=== PATIENT | male | born 1990 | race Caucasian/White ===

== ENCOUNTER 2021-11-19 06:37 | Day surgery (SDC) | payer OTHER, SELFPAY ==
[2021-11-19] VITALS (11 sets, daily range): BP systolic 115–135; BP diastolic 76–86; PULSE 65–84; RESP 12–16; TEMP 36.7–37.2; O2SAT 97–99; BMI 37.5
--- NOTE | 2021-11-19 06:57 | CRLHL7_ITS ---
For Patients: As a result of the Cures Act, medical imaging exams and procedure reports are released immediately into your electronic medical record. You may view this report before your referring provider. If you have questions, please contact your health care provider. Indication: foreign body removal Technique: Three fluoroscopic images of the thenar aspect of the right hand submitted. Fluoroscopic time 13.0 seconds. IMPRESSION: Fluoroscopic guidance for foreign body removal. Dictated by Fabrizio Molina MD @ 11/19/2021 8:51:42 AM (Electronically Signed)
[2021-11-19] MEDS: BUPIVACAINE 0.5% 30 ML 6 ML INJECTION (07:32)
[2021-11-19] MEDS: lidocaine HCL 2 % MULTIDOSE 20 ML VIAL 6 ML INJECTION (07:32)
--- NOTE | 2021-11-19 08:06 | PM.ORPRC ---
Procedure Note Date of procedure: 11/19/21 Procedure: SURGEON: Seferino Conley MD CALENDER MACHINE OPERATOR: Yenny Luis PA-C. PREOPERATIVE DIAGNOSIS: Right hand retained foreign body POSTOPERATIVE DIAGNOSIS: Right hand retained foreign body NAME OF OPERATION: Right hand foreign body removal, deep ANESTHESIA: Local ESTIMATED BLOOD LOSS: 0 mL COMPLICATIONS: None SPECIMENS: None DRAINS: None PREOPERATIVE ANTIBIOTICS: None INDICATIONS: The patient is a [id number]-year-old male who injured his right thumb, and is left with a piece of glass in his thumb. He wished to have this removed. The risks, benefits and expected outcomes were discussed in detail. These included but were not limited to: Infection, bleeding, injury to blood vessel or nerve, venous thromboembolism. All questions were answered to their satisfaction. PROCEDURE: The patient was placed supine on the operating room table. The right upper extremity was prepped and draped in the usual sterile fashion. Local anesthesia was established with 0.5% Marcaine, without epinephrine. The limb was elevated. The pneumatic tourniquet was inflated to 300 mmHg. A longitudinal incision was made over the radial side of the thumb at the level of the MP joint, utilizing traumatic scar. Subcutaneous dissection was taken with the tenotomy scissors. We were able to localize the foreign body with the image intensifier. It was removed intact. The wound was explored. There were no other foreign bodies. The wound was irrigated with normal saline. Skin was closed with a 3-0 nylon in a simple interrupted fashion. A dry dressing was applied. Sponge and needle counts were correct x2. The patient tolerated the procedure well. There were no apparent complications. They were carefully transferred to the hospital bed and taken to the postanesthesia care unit in satisfactory condition. PLAN: The patient will be discharged to home. Use of the hand as tolerates. They will follow up in the office in 2 weeks for a wound check and suture removal.
== END 2021-11-19 08:30 | disposition home or self-care (01) ==
PROVIDERS: Visit Provider Orthopaedic Surgery
PROC: (CPT 20525; principal; 2021-11-19 07:30)
DX: M79.5 Residual foreign body in soft tissue (principal); S60.351A Superficial foreign body of right thumb, initial encounter
CPT/HCPCS: 20525; 73130; J3490